=== PATIENT | female | born 1950 | race Caucasian/White ===

== ENCOUNTER 2023-06-04 07:30 | Emergency (ER) | payer OTHER ==
[~2023-06-04] VITALS: Ht 157.5 cm; Wt 52.6 kg
[2023-06-04 07:38] VITALS: BP_SYST 182; PULSE 79; RESP 20; TEMP 98.3; O2SAT 99
[2023-06-04] MEDS ORDERED: BACITRACIN 1 GM OINT TP ONE (08:00)
[2023-06-04] MEDS ORDERED: BACI15OI13 TP (09:16)
[2023-06-04] MEDS ORDERED: ACET-2634 PO (09:16)
[2023-06-04 09:36] VITALS: BP_SYST 145; PULSE 85; RESP 16; TEMP 98.3; O2SAT 99
== END 2023-06-04 09:30 | disposition home or self-care (01) ==
LOC: SED 07:30
DX: S20.211A Contusion of right front wall of thorax, initial encounter (principal); S00.03XA Contusion of scalp, initial encounter; S60.512A Abrasion of left hand, initial encounter; S60.511A Abrasion of right hand, initial encounter; Z79.899 Other long term (current) drug therapy; W18.40XA Slipping, tripping and stumbling without falling, unspecified, initial encounter; Y93.89 Activity, other specified; Y92.89 Other specified places as the place of occurrence of the external cause; Y99.8 Other external cause status
CPT/HCPCS: 70450-TC; 71100; 76376; 99284